=== PATIENT | female | born 1980 | race Caucasian/White ===

== ENCOUNTER → 2022-08-16 | Outpatient (CLI) | payer OTHER ==
[~2022-08-16] MED LIST: IBUP200C33 PO
== END ==
LOC: M WHC 13:23
PROVIDERS: ATTEND Physician Assistant
DX: N63.41 Unspecified lump in right breast, subareolar (principal)

== ENCOUNTER → 2022-08-17 | Outpatient (CLI) | payer OTHER ==
[~2022-08-17] MED LIST changes: +**SFHN** LIDOCAINE 1% MDV 20ML VIAL ONE; +**SFHN** SODIUM BICARBONATE 8.4% 10MEQ 10ML VIAL ONE
[2022-08-17 14:41] VITALS: BP 154/80
== END ==
LOC: M WHCPRO 13:32
PROVIDERS: ATTEND Physician Assistant
DX: R92.8 Other abnormal and inconclusive findings on diagnostic imaging of breast (principal); N63.12 Unspecified lump in the right breast, upper inner quadrant

== ENCOUNTER → 2022-08-17 | Outpatient (CLI) | payer OTHER ==
[~2022-08-17] MED LIST changes: -**SFHN** LIDOCAINE 1% MDV 20ML VIAL ONE; -**SFHN** SODIUM BICARBONATE 8.4% 10MEQ 10ML VIAL ONE
== END ==
LOC: M WHC 07:17
PROVIDERS: ATTEND Physician Assistant
DX: N64.4 Mastodynia (principal)